=== PATIENT | male | born 1960 | race Caucasian/White ===

== ENCOUNTER 2024-04-06 17:47 | Emergency (ER) | payer BC, SELFPAY ==
[2024-04-06 17:50] VITALS: BP 127/71
[2024-04-06 17:51] VITALS: BP 127/71; BMI 27.0
[2024-04-06 18:00] VITALS: BP 123/66
[2024-04-06 18:04] LABS: % Basophils 1.4 % (0-2); % Eosinophils 4.7 % (0-6); % Immature Granulocytes 0.2 % (0-0.5); % Lymphocytes 19.1 % (20.5-51.1); % Monocytes 9.3 % (1.7-9.3); % Neutrophils 65.3 % (42.2-75.2); Absolute Basophils 0.1 10^3/uL (0-0.2); Absolute Eosinophils 0.4 10^3/uL (0-0.7); Absolute Lymphocytes 1.8 10^3/uL (1.2-3.4); Absolute Monocytes 0.9 10^3/uL (0.1-0.6); Absolute Neutrophils 6.1 10^3/uL (1.4-6.5); Hematocrit 40.8 % (39.0-52.0); Hemoglobin 14.3 g/dL (13.0-18.0); Mean Corpuscular Volume 82.8 fL (80.0-94.0); Mean Platelet Volume 9.9 fL (7.4-10.4); Nucleated Red Blood Cells % 0 % (-); Platelet Count 275 10^3/uL (130-400); Red Blood Cell Count 4.93 10^6/uL (4.70-6.10); Red Cell Dist. Width 14.1 % (11.5-14.5); White Blood Cell Count 9.4 10^3/uL (4.8-10.8)
[2024-04-06 18:19] LABS: ALT (SGPT) 23 U/L (0-50); AST (SGOT) 22 U/L (17-59); Albumin 4.3 g/dl (3.5-5.0); Alkaline Phosphatase 83 U/L (38-126); Blood Urea Nitrogen 13 mg/dl (9-20); Calcium 9.6 mg/dl (8.4-10.2); Carbon Dioxide 21 mmol/L (22-30); Chloride 110 mmol/L (98-107); Estimated Creatinine Clearance 76 ml/min; Glucose 228 mg/dl (70-99); Potassium 4.2 mmol/L (3.5-5.1); Sodium 139 mmol/L (135-145); Total Bilirubin 1.1 mg/dl (0.2-1.3); Total Protein 6.8 g/dl (6.3-8.2); eGFR > 60.00
[2024-04-06 18:28] LABS: Troponin I < 0.012 ng/ml
--- NOTE | 2024-04-06 19:08 | ED.GENMED ---
History of Present Illness
General
Chief Complaint: Chest Pain
Source: patient
Exam Limitations: none
Time Seen by Provider: 04/06/24 18:15
History of Present Illness
History of Present Illness:
This is a 63 year old male that comes in with c/o epigastric pain. State that he started with pain in the lower chest that went into his back States that he also had trouble breathing. States that this started at 4pm today and has been constant.
States that he had a headache after the nitro and was slightly lightheaded. States that he was nauseated and did vomit. Denies any fever, chills, diarrhea, urinary burning.
Past History
Past History
ED Past Medical History: Asthma, Hypercholesterolemia and NIDDM
ED Past Surgical History: None
Social History
Tobacco: Former smoker
Alcohol: None
Personal:
Living: with family
Review of Systems
Review of Systems
All Other Systems: ROS reviewed and negative except as documented in HPI and ROS
Constitutional: Reports no symptoms; Denies fever or chills
EENT: Reports no symptoms
Respiratory: Reports trouble breathing; Denies cough
Cardiac: Reports chest pain (Lower chest)
ABD/GI: Reports abdominal pain (Upper abd), nausea and vomiting; Denies diarrhea
: Reports no symptoms; Denies dysuria, frequency or urgency
Musculoskeletal: Reports no symptoms
Skin: Reports no symptoms
Neurological: Reports headache (after nitro) and other (Lightheaded); Denies dizzy
Psychiatric: Reports no symptoms
Phy Exam
General Physical Exam
General Presentation: no apparent distress
General age: appears stated age
General Skin: warm and dry
General Habitus: normal
General Mental: alert
General Hydration: dry mucous membranes
ENT Exam
ENT Exam: TM's normal, pharynx normal and neck supple
Eye Exam
Eye Exam: EOMI
Cardiovascular Exam
Cardiovascular Exam: regular rate/rhythm, no edema, no murmur and normal peripheral pulses
Pulmonary Exam
Pulmonary Exam: lungs clear, no respiratory distress, no rales, chest non tender, no crackles, no rhonchi, no wheezing and no cough
Gastrointestinal Exam
Gastrointestinal Exam: normal bowel sounds, soft, no organomegaly, no pulsatile mass, non distended and tender (epigastric and right upper abd tenderness)
Musculoskeletal Exam
Musculoskeletal Exam: full ROM and no edema
Skin Exam
Skin Exam: normal color, warm/dry, no rash and no petechia
Psychiatric Exam
Psychiatric Exam: normal mood/affect
Scores
Heart Score for Chest Pain Patients
STEMI patient?: Not applicable
Course
Orders/Labs/Results
Orders:
Orders
04/06/24 17:49
Electrocardiogram (*1) Urgent
Reason for Study: Chest Pain
EKG- Treatment ONCE
04/06/24 17:58
Complete Blood Count/With Diff Urgent
Comprehensive Metabolic Panel Urgent
Lipase Urgent
Comment: ADD ON
Troponin I Urgent
04/06/24 19:07
Pantoprazole [Protonix IV] 40 mg IV NOW STA
US Abdomen Complete/Upper Urgent
Comment:
Reason For Exam: epigastric and right upper abd tenderness
04/06/24 19:08
Add On- LAB Urgent
Tests Added?: Lipase
04/06/24 19:11
Ketorolac [Toradol] 30 mg IV NOW STA
04/06/24 20:57
Troponin I Urgent
Abnormal Lab Results
04/06/24
17:58
Absolute Monos (auto) 0.9 H 10^3/uL
(0.1-0.6)
Lymphocytes % 19.1 L %
(20.5-51.1)
Chloride 110 H mmol/L
(98-107)
Carbon Dioxide 21 L mmol/L
(22-30)
Glucose 228 H mg/dl
(70-99)
04/06/24 17:58
04/06/24 17:58
chloride slightly elevated. carbon dioxide slightly low. Hyperglycemia (patient is a diabetic), Troponin <0.012
Second Troponin <0.012, Lipase normal at 290
Vital Signs
Initial and Last Documented VS:
Initial Vital Signs
BP
127/71
04/06/24 17:50
Last Documented Vital Signs
Temp Pulse Resp BP Pulse Ox
98.3 F 70 14 120/68 100
04/06/24 17:51 04/06/24 20:57 04/06/24 20:57 04/06/24 20:57 04/06/24 20:57
MDM/Problems Addressed
Differential Diagnosis Includes:
Gallbladder disease, Gastritis,
MDM/Problems Addressed:
This is a 63 year old male that comes in with c/o pain in the upper abd/lower chest. States that the pain goes through to his back. States that it has been constant and that he was nauseated and vomiting.
Will get labs and US. Will give Protonix for Reflux
Back into see patient. Explained that his US shows that he has a gallstone stuck in the gallbladder neck. Explained that he will be admitted for further evaluation. Hospitalist notified.
Chronic conditions affecting care: DM
Acute Exacerbation and/or Progression of Chronic Illness:
NA
*Radiology
Radiology exam reviewed: radiology read reviewed (US night hawk- Nonmobile stone in the gallbladder neck. Gallbladder is distended, but without wall thickening or adjacent fluid. Negative sonographic Monteagle sign, but patient received pain
medication. Consider HIDA scan for further evaluation as warranted. No bile duct dilation. Liver is mildly) and other (US cont- liver is mildly echogenic, suggestive of steatosis. Limited evaluation of the pancreas. Unremarkable kidneys. Spleen is
normal in size. )
*Pulse Oximetry
Patient hypoxic: no
*EKG
Interpreted by ED Provider?: Yes
Heart Rate: 63
Rate: normal
Rhythm: sinus
[place]: normal axis
Interval: normal interval
QRS Pattern: normal QRS
Ischemia: no ischemia
*Preparator Interpretation
Rate: normal
Heart Rate: 66
Rhythm: sinus
*Critical Care Note
Total Time (30-74mins, 75-104mins- exclusive of procedures): Not Applicable
ED Attending Note
-
Portions of this chart may have been created with voice recognition software.� Occasional wrong word or��sound alike� substitutions may have occurred due to the inherent limitations of voice recognition software.
Discharge Plan
Departure
Patient Disposition: Against Medical Advice
Date of Disposition: 04/06/24
Time of Disposition: 21:38
Admit to: Med/Surg
Presentation/result/management discussed w/ accepting MD/DO: Hospitalist
Patient with high blood pressure during this ER visit?: No
Condition: Good
Covid-19: Not Applicable
Discharge Problem:
Cholelithiasis
Instructions: Gallstones (DC)
Prescriptions:
No Action
atorvastatin 40 mg Tablet
40 mg PO DAILY
aspirin 81 mg Tablet,Delayed Release (Dr/Ec)
81 mg PO DAILY
colesevelam 625 mg Tablet
625 mg PO BID
glimepiride 4 mg Tablet
4 mg PO BID
esomeprazole magnesium [Nexium] 20 mg Capsule,Delayed Release(Dr/Ec)
20 mg PO DAILY
ezetimibe 10 mg Tablet
10 mg PO DAILY
cholecalciferol (vitamin D3) [Vitamin D3] 50 mcg (2,000 unit) Capsule
50 mcg PO DAILY
Trulicity 1.5 mg/0.5 mL Pen Injector
1.5 mg SC QWEEK
Synjardy 12.5-1,000 mg Tablet
1 tab PO BID
Referrals:
Estephania Grace MD [Family Provider] -
Guicho Hernandez MD [Active] - Follow up in 2-3 days
Activity Restrictions/Additional Instructions:
As discussed, your Ultrasound shows that you have a gallstone that is stuck in the gallbladder neck. This can cause you to get very sick. You have chosen to sign out against medicatl advise. PLEASE RETURN TO THE EMERGENCY ROOM WITH INCREASED PAIN
OR FEVER.
Interventions
Interventions:
*Risk Screen - Suicide Last Done: 04/06/24 17:54
*General Assessment Last Done: 04/06/24 17:54
*Neglect/Abuse Screening Last Done: 04/06/24 17:54
ED- Fall Risk Assessment Last Done: 04/06/24 19:32
*ED COVID-19 Vaccine History Last Done: 04/06/24 17:54
ED- Cardiac Assessment Last Done: 04/06/24 19:32
Discharge Date and Time
Print Language: WOLOF
[2024-04-06 19:21] VITALS: BP 140/77
[2024-04-06] MEDS: TORADOL 30 MG IV (19:22)
--- NOTE | 2024-04-06 19:23 | EDRN ---
Pt was driving around 1600 when he developed pain in the center of his chest described as sharp radiating into his back. Pt took a pepcid which did not help. Pt got home and 911 called. Pt given aspirin and ntg by EMS and says it did not help his
chest pain. Pt felt sob, had nausea and vomited some phlegm once. Pt was sweaty when he first developed the pain. No fever/chills/cough, abd pain, weakness. Pt says he feels a little dizzy when he stands. No hx of similar chest pain.
[2024-04-06] MEDS: PROTONIX IV 40 MG IV (19:25)
[2024-04-06 19:53] LABS: Lipase 290 U/L (23-300)
[2024-04-06 20:57] VITALS: BP 120/68
[2024-04-06 21:26] LABS: Troponin I < 0.012 ng/ml
== END 2024-04-06 21:59 | disposition left against medical advice (07) ==
LOC: EMR 17:47
PROVIDERS: Clinical Nurse Specialist Family Health; Emergency Medicine; EMERGENCY PHYSICIAN Student in an Organized Health Care Education/Training Program; FAMILY PHYSICIAN Family Medicine
DX: K80.20 Calculus of gallbladder without cholecystitis without obstruction (principal); J45.909 Unspecified asthma, uncomplicated; E78.00 Pure hypercholesterolemia, unspecified; E11.65 Type 2 diabetes mellitus with hyperglycemia; Z87.891 Personal history of nicotine dependence; K21.9 Gastro-esophageal reflux disease without esophagitis; R11.2 Nausea with vomiting, unspecified
CPT/HCPCS: 99284; 96374; 96375; 76700; 80053; 83690; 84484; 85025; 93005

== ENCOUNTER 2024-04-07 11:41 | Day surgery (SDC) | payer BC, SELFPAY ==
[2024-04-07] VITALS (13 sets, daily range): BP systolic 102–160; BP diastolic 59–94; BMI 27.0
[2024-04-07] MEDS: NSS 1000 IV (04:54)
[2024-04-07] MEDS: DILAUDID 0.5 MG IV (04:55)
--- NOTE | 2024-04-07 04:58 | ED.GENMED ---
History of Present Illness
General
Chief Complaint: Abdominal Pain
Source: patient, spouse and previous hospital records (ED visit from yesterday evening with similar complaint)
Exam Limitations: none
Time Seen by Provider: 04/07/24 04:02
Nursing documentation reviewed up to this point in time: agreed with
History of Present Illness
History of Present Illness:
This is a 63-year-old gentleman who has history of hyperlipidemia, wyf-mophwkc-ldadhuycj diabetes who presented to this ED initially yesterday evening with complaints of epigastric, right upper quadrant pain, moderate to severe accompanied with
nausea and vomiting. He does admit to similar less intense episodes of pain sporadically over the past several months but much more severe and persistent yesterday evening.
Laboratory studies were unremarkable but ultrasound showed multiple gallstones with a large stone lodged in the neck of the gallbladder. No convincing evidence of cholecystitis.
He was pain-free after an IV dose of Toradol and pantoprazole. Was offered hospitalization but declined and was discharged to home.
He returns this morning due to return of right upper quadrant pain around midnight last night. Upon returning home he did not eat or drink anything, has not taken any additional pain medication. He admits to nausea but has had no further vomiting.
No fevers or chills.
Past History
Past History
ED Past Medical History: Asthma, Hypercholesterolemia, NIDDM and Other (Cholelithiasis)
ED Past Surgical History: None
Social History
Tobacco: Former smoker
Alcohol: None
Personal:
Living: with family
Employment: Employed
Family History
Family History: Other (Noncontributory)
Phy Exam
Physical Exam
Physical Exam:
GENERAL: 63-year-old gentleman appears his stated age, awake and alert, pleasant, appears in no acute distress. is accompanying.
EYE: anicteric
NECK: Supple, nontender, no meningismus, no significant adenopathy.
ENT: posterior pharynx is clear, oral mucosa is moist. TM clear b/l, nares patent.
CARDIAC: Regular rate and rhythm. no murmur.
LUNGS: Clear breath sounds bilaterally, no acute respiratory distress, no wheezes/rales/rhonchi
ABDOMEN: Soft, nondistended, moderate tenderness right upper quadrant as well as mild tenderness epigastric region, no r/g, no cvat. normoactive BS.
NEUROLOGICAL: Alert and oriented x3, no focal neuro deficits. Gait is steady.
SKIN: Warm and dry, normal color, skin intact. No rash.
MUSCULOSKELETAL: No C/C/E. peripheral pulses are full and equal b/l. No palpable tenderness.
PSYCH: Normal and appropriate interaction.
Course
Orders/Labs/Results
Orders:
Orders
04/07/24 04:23
0.9% Sodium Chloride 1000 ml [Nss] 1,000 ml IV BOLUS
HYDROmorphone [Dilaudid] 0.5 mg IV NOW STA
04/07/24 04:53
Complete Blood Count/With Diff Urgent
Comprehensive Metabolic Panel Urgent
Lipase Urgent
04/07/24 05:57
Piperacillin/Tazo 4.5 Gram [Zosyn] 4.5 gram in 100 ml IV NOW
Abnormal Lab Results
04/07/24
04:53
WBC 13.5 H 10^3/uL
(4.8-10.8)
Abs Immat Gran (auto) 0.1 H 10^3/uL
(0-0.05)
Absolute Neuts (auto) 11.2 H 10^3/uL
(1.4-6.5)
Absolute Lymphs (auto) 1.1 L 10^3/uL
(1.2-3.4)
Absolute Monos (auto) 0.9 H 10^3/uL
(0.1-0.6)
Neutrophils % 83.0 H %
(42.2-75.2)
Lymphocytes % 8.3 L %
(20.5-51.1)
Chloride 112 H mmol/L
(98-107)
Carbon Dioxide 20 L mmol/L
(22-30)
Glucose 144 H mg/dl
(70-99)
Total Bilirubin 1.6 H mg/dl
(0.2-1.3)
04/07/24 04:53
04/07/24 04:53
Vital Signs
Initial and Last Documented VS:
Initial Vital Signs
Temp Pulse Resp BP Pulse Ox
97.7 F 72 22 160/85 100
04/07/24 03:14 04/07/24 03:14 04/07/24 03:14 04/07/24 03:14 04/07/24 03:14
Last Documented Vital Signs
Temp Pulse Resp BP Pulse Ox
97.7 F 69 16 141/66 96
04/07/24 03:14 04/07/24 06:20 04/07/24 06:20 04/07/24 06:20 04/07/24 06:20
MDM/Problems Addressed
Differential Diagnosis Includes:
Patient with known cholelithiasis with stone lodged in the neck of the gallbladder is noted on ultrasound yesterday returns to the ED with return of right upper quadrant abdominal pain despite remaining n.p.o.
Concern for early/progressive cholecystitis.
Will recheck labs, medicate for pain and nausea.
Depending on results and clinical course will plan to touch base with general surgery.
Chronic conditions affecting care: Other (Known cholelithiasis)
*Radiology
Radiology exam reviewed: radiology read reviewed (Ultrasound of the abdomen from yesterday evening reviewed.)
*Pulse Oximetry
Patient hypoxic: no
*Critical Care Note
Total Time (30-74mins, 75-104mins- exclusive of procedures): Not Applicable
Update Note
Update Note:
04/07/2024 0606 AM
Patient is much more comfortable after an IV dose of Dilaudid.
White blood cell count trending up to 13.5. T. bili trending up to 1.6.
All other LFTs within normal limits.
Concern for acute cholecystitis. Will initiate IV Zosyn, continue IV fluids.
Will contact general surgery. Awaiting return text.
04/07/2024 0629 AM
Return text from Dr. Gatica who request patient be admitted to hospitalist service. He will evaluate this a.m.
ED Attending Note
-
Portions of this chart may have been created with voice recognition software.� Occasional wrong word or��sound alike� substitutions may have occurred due to the inherent limitations of voice recognition software.
Discharge Plan
Departure
Patient Disposition: Admit
Date of Disposition: 04/07/24
Time of Disposition: 06:29
Admit to: Med/Surg
Presentation/result/management discussed w/ accepting MD/DO: Hospitalist
Condition: Fair
Discharge Problem:
Acute calculous cholecystitis
Prescriptions:
No Action
atorvastatin 40 mg Tablet
40 mg PO DAILY
aspirin 81 mg Tablet,Delayed Release (Dr/Ec)
81 mg PO DAILY
colesevelam 625 mg Tablet
625 mg PO BID
glimepiride 4 mg Tablet
4 mg PO BID
esomeprazole magnesium [Nexium] 20 mg Capsule,Delayed Release(Dr/Ec)
20 mg PO DAILY
ezetimibe 10 mg Tablet
10 mg PO DAILY
cholecalciferol (vitamin D3) [Vitamin D3] 50 mcg (2,000 unit) Capsule
50 mcg PO DAILY
Trulicity 1.5 mg/0.5 mL Pen Injector
1.5 mg SC QWEEK
Synjardy 12.5-1,000 mg Tablet
1 tab PO BID
Referrals:
NONE,* [Active] -
Interventions
Interventions:
*Risk Screen - Suicide Last Done: 04/07/24 03:14
*General Assessment Last Done: 04/07/24 03:14
*Neglect/Abuse Screening Last Done: 04/07/24 03:14
ED- Fall Risk Assessment Last Done: 04/07/24 03:18
ZL-Mdffwo-Jovwdnoqfi Assessment Last Done: 04/07/24 06:17
Discharge Date and Time
Print Language: CYPRIOT
[2024-04-07 05:21] LABS: % Basophils 0.8 % (0-2); % Eosinophils 0.7 % (0-6); % Immature Granulocytes 0.4 % (0-0.5); % Lymphocytes 8.3 % (20.5-51.1); % Monocytes 6.8 % (1.7-9.3); Absolute Basophils 0.1 10^3/uL (0-0.2); Absolute Eosinophils 0.1 10^3/uL (0-0.7); Absolute Immature Granulocytes 0.1 10^3/uL (0-0.05); Absolute Lymphocytes 1.1 10^3/uL (1.2-3.4); Absolute Monocytes 0.9 10^3/uL (0.1-0.6); Absolute Neutrophils 11.2 10^3/uL (1.4-6.5); Hematocrit 41.8 % (39.0-52.0); Hemoglobin 14.5 g/dL (13.0-18.0); Mean Corp Hgb Conc. 34.7 g/dL (33.0-37.0); Mean Corpuscular Hgb 28.8 pg (27.0-31.0); Mean Corpuscular Volume 83.1 fL (80.0-94.0); Nucleated Red Blood Cells % 0 % (-); Platelet Count 252 10^3/uL (130-400); Red Blood Cell Count 5.03 10^6/uL (4.70-6.10); Red Cell Dist. Width 14.3 % (11.5-14.5); White Blood Cell Count 13.5 10^3/uL (4.8-10.8)
[2024-04-07 05:43] LABS: ALT (SGPT) 24 U/L (0-50); AST (SGOT) 27 U/L (17-59); Albumin 4.5 g/dl (3.5-5.0); Alkaline Phosphatase 88 U/L (38-126); Blood Urea Nitrogen 13 mg/dl (9-20); Calcium 9.6 mg/dl (8.4-10.2); Carbon Dioxide 20 mmol/L (22-30); Chloride 112 mmol/L (98-107); Glucose 144 mg/dl (70-99); Lipase 246 U/L (23-300); Sodium 141 mmol/L (135-145); Total Bilirubin 1.6 mg/dl (0.2-1.3); Total Protein 7.1 g/dl (6.3-8.2); eGFR > 60.00
[2024-04-07] MEDS: ZOSYN 100 IV (06:17)
--- NOTE | 2024-04-07 06:21 | EDRN ---
Patient is sleeping at this time, at bedside will continue to monitor
--- NOTE | 2024-04-07 09:34 | CON.GS ---
Medical History
-
Chief Complaint: Epigastric and RUQ abdominal pain
History of Present Illness:
Patient is a 63 yo M with a PMH of GERD, HLD, asthma, and NIDDM who presents with persistent epigastric and RUQ abdominal pain. Mr. Hooks was recently evaluated in the ER on the evening of 04/06. He was diagnosed with symptomatic
cholelithiasis. His symptoms improved he personally made the decision to try outpatient management. However, he has had persistent but somewhat improved epigastric and RUQ abdominal discomfort. No nausea or vomiting. No fevers or chills. No
significant fluctuation in GI habits. He denies any jaundice, pale stools, or tea colored urine. He has had intermittent attacks for years now. He states that these attacks would occur every few months. Over the last 2 months he has had more
persistent attacks. is postcholecystectomy.
Past Medical History
Past Medical History: Asthma, GERD, Hypercholesterolemia and NIDDM
Past Surgical History: None
Social History
Tobacco: Former Smoker
Alcohol: Occasional
Drug: None
Personal:
Living: With Family
Employment: Employed
Family History
Family History: Reviewed & Noncontributory
Allergies / Home Medications
Allergy/AdvReac Type Severity Reaction Status Date / Time
No Known Allergies Allergy Verified 04/07/24 03:18
�Medication �Instructions �Recorded �Confirmed �Type
aspirin 81 mg tablet,delayed 81 mg PO DAILY 04/06/24 04/07/24 History
release
atorvastatin 40 mg tablet 40 mg PO DAILY 04/06/24 04/07/24 History
cholecalciferol (vitamin D3) 50 50 mcg PO DAILY 04/06/24 04/07/24 History
mcg (2,000 unit) capsule (Vitamin
D3)
colesevelam 625 mg tablet 625 mg PO BID 04/06/24 04/07/24 History
dulaglutide 1.5 mg/0.5 mL 1.5 mg SC QWEEK 04/06/24 04/07/24 History
subcutaneous pen injector
(Trulicity)
empagliflozin 12.5 mg-metformin 1 tab PO BID 04/06/24 04/07/24 History
1,000 mg tablet (Synjardy)
esomeprazole magnesium 20 mg 20 mg PO DAILY 04/06/24 04/07/24 History
capsule,delayed release (Nexium)
ezetimibe 10 mg tablet 10 mg PO DAILY 04/06/24 04/07/24 History
glimepiride 4 mg tablet 4 mg PO BID 04/06/24 04/07/24 History
Review of Systems
-
A 10 point review of systems was completed, and was negative except as per HPI.
Physical Exam
Vital Signs
Temp Pulse Resp BP Pulse Ox
97.7 F 68 20 139/85 97
04/07/24 03:14 04/07/24 09:00 04/07/24 09:00 04/07/24 09:00 04/07/24 09:00
04/06/24 04/07/24 04/08/24
06:59 06:59 06:59
Actual Weight 83 kg
Body Mass Index (BMI) 27.0
Lab Results
04/07/24 04:53
04/07/24 04:53
WBC 13.5 10^3/uL (4.8-10.8) H 04/07/24 04:53
Hgb 14.5 g/dL (13.0-18.0) 04/07/24 04:53
Hct 41.8 % (39.0-52.0) 04/07/24 04:53
Plt Count 252 10^3/uL (130-400) 04/07/24 04:53
Abs Immat Gran (auto) 0.1 10^3/uL (0-0.05) H 04/07/24 04:53
Neutrophils % 83.0 % (42.2-75.2) H 04/07/24 04:53
Physical Exam
General: Well Developed, Well Nourished and No Apparent Distress
HEENT: Normocephalic and Anicteric
Respiratory: Non Labored Respirations
Cardiac: Regular Rhythm
GI: Soft, Non Distended, Tender (RUQ) and Other (Non-peritoneal)
Musculoskeletal: No Edema
Skin: Warm and Dry
Neuro: Nonfocal/Grossly Intact
Data Reviewed
-
Ultrasound: Image Personally Visualized and interpreted and Report Reviewed by me
Labs: Labs Reviewed by me
Old Records: Reviewed
Assessment / Plan
-
Patient is a 63 yo M p/w acute cholecystitis
The natural history and pathophysiology of biliary and stone disease was discussed. Anatomy was reviewed. Workup thus far including ultrasound and labs were reviewed. Options for management including medical management with antibiotics and a
low-fat diet versus surgical management with cholecystectomy were considered and discussed. Given his persistent symptoms recommend cholecystectomy.
Plan for laparoscopic cholecystectomy with possible cholangiogram. The procedure itself, as well as the risks, benefits, and alternatives was discussed. Specifically, we discussed the risks of bleeding, infection, injury to surrounding structures
(bowel, bile ducts), CBD injury, need for open procedure. Typical postprocedural recovery including pain management and a 10 to 20% risk of fluctuations in GI function was discussed. All questions answered. Consent signed.
-- Laparoscopic cholecystectomy
-- NPO, IVF
-- Zosyn admin in ED
-- Pain control: Tylenol and IV Dilaudid PRN
--- NOTE | 2024-04-07 09:39 | W.SUR.PREOP ---
Pre-Operative Surgical Note
-
I have examined this patient prior to the performance of the scheduled procedure.
The patient's condition is unchanged from the time of the current History and
Physical and the patient is able to undergo the scheduled procedure.
--- NOTE | 2024-04-07 11:26 | W.IMMPOSTOP ---
Addendum entered and electronically signed by Everardo Paredes MD 04/07/24 11:40:
[facility]# [id number]
Original Note:
Surgical Immed Post Op Note
-
Primary Surgeon: Reggie
Assisting Surgeon: None
Pre-op Diagnosis: Acute cholecystitis
Post-op Diagnosis: Acute cholecystitis
Procedure Performed: Laparoscopic cholecystectomy with IOC
Anesthesia Type: General
Specimen / Cultures:
1. Gallbladder
Estimated Blood Loss: 3 cc
Complications: None
Operative Findings:
1. Acutely inflamed and edematous GB, hydropic with white bile
2. Critical view of safety
3. IOC with filling defect flushed through, no further defects appreciated
4. Duct taken with stapler due to thickness, artery with clips
Plan:
-- Abx while in hospital, none on DC
-- Repeat CMP in AM
[2024-04-07 11:38] LABS: Glucose - Point of Care 256 mg/dl (70-99)
[2024-04-07] MEDS: NORMOSOL-R 1000 IV ×2 (11:46→20:13)
[2024-04-07] MEDS: NOVOLOG vial 4 UNITS SC (11:48)
[2024-04-07] MEDS: TYLENOL PO (12:00)
--- NOTE | 2024-04-07 12:25 | W.PN.HOSP.TC ---
Today's Communication/Plan
-
will follow for diabetic management
Assessment / Plan
Assessment / Plan
Acute Cholecystitis
NIDDM
GERD
Hyperlipidemia
Rec: would hold on resuming Amaryl until oral intake and levels of glu are known and continue as ordered insulin moderate sliding scale
will follow during hospitalization for diabetic management
Thank you
see dictated note
Anticipated Discharge: 24 - 48 hours
Subjective/Interval History
-
Date of Service: April 07, 2024
Pt admitted to surgical service with abdominal pain, medicine consulted for diabetic management
Objective Data
-
Labs:
Laboratory Results
04/07/24
04:53
WBC 13.5 H
Hgb 14.5
Hct 41.8
Plt Count 252
Sodium 141
Potassium 4.0
Chloride 112 H
Carbon Dioxide 20 L
BUN 13
Creatinine 0.9
Glucose 144 H
Calcium 9.6
Total Bilirubin 1.6 H
AST 27
ALT 24
Alkaline Phosphatase 88
Vital Signs:
Vital Signs
Temp Pulse Resp BP Pulse Ox
97.4 F 99 14 134/94 92
04/07/24 11:30 04/07/24 12:15 04/07/24 12:15 04/07/24 12:15 04/07/24 12:15
Review of Systems
-
History Source: Patient and Family ( at bedside)
Constitutional: Denies Fever
Respiratory: Reports No Symptoms
Cardiac: Reports No Symptoms
Abdomen/GI: Reports Abdominal Pain, Nausea and Vomiting
Physical Exam
-
General: Well Developed, Well Nourished and No Apparent Distress
HEENT: Normocephalic, Atraumatic and Moist Mucous Membranes
Respiratory: Clear to Auscultation; Negative Wheezes, Rales or Rhonchi
Cardiac: Regular Rhythm and S1/S2
GI: Soft, Normal Bowel Sounds and Tender (Herman's point)
Musculoskeletal: No Clubbing, No Cyanosis and No Edema
Neuro: Awake, Alert and Oriented
--- NOTE | 2024-04-07 13:00 | PTCARENOTE ---
Pt received from the PACU via bed. Transport was w/o incident. Pt is Drowsy, and easily arousable. HR reg/irreg, lungs are clear, resp. easy. Pulse ox 97%on 3Lvia nc. Pt's abd with Lap. sites w/ surgical glue, well approximated, no drainage noted.
VSS, Pt is afebrile. Pt and Pt's instructed on plan of care. Both Pt and verbalized understanding of instructions, call ríos is within reach.
[2024-04-07 16:49] LABS: Glucose - Point of Care 97 mg/dl (70-99)
[2024-04-07] MEDS: ZOSYN 50 IV ×2 (17:44→22:04)
[2024-04-07] MEDS: TYLENOL 650 MG PO ×3 (17:45→23:52)
[2024-04-07] MEDS: TORADOL 10 MG IV (18:12)
[2024-04-07 22:01] LABS: Glucose - Point of Care 125 mg/dl (70-99)
[2024-04-08] MEDS: ZOSYN 50 IV (04:04)
[2024-04-08] MEDS: TYLENOL 650 MG PO ×5 (04:04→19:44)
[2024-04-08 07:05] VITALS: BP 140/72
[2024-04-08] MEDS: NORMOSOL-R IV (07:12)
[2024-04-08 07:23] LABS: Hematocrit 38.5 % (39.0-52.0); Hemoglobin 13.1 g/dL (13.0-18.0); Mean Corpuscular Hgb 28.8 pg (27.0-31.0); Mean Corpuscular Volume 84.6 fL (80.0-94.0); Platelet Count 223 10^3/uL (130-400); Red Blood Cell Count 4.55 10^6/uL (4.70-6.10); Red Cell Dist. Width 14.6 % (11.5-14.5); White Blood Cell Count 10.2 10^3/uL (4.8-10.8)
[2024-04-08 07:27] LABS: Glucose - Point of Care 137 mg/dl (70-99)
[2024-04-08] MEDS: PROTONIX 40 MG PO (07:27)
[2024-04-08] MEDS: ZETIA 10 MG PO (07:27)
[2024-04-08] MEDS: LIPITOR 40 MG PO (07:27)
--- NOTE | 2024-04-08 07:28 | W.PN.GS2 ---
Today's Communication / Plan
-
-- F/u AM labs
-- HLIV
-- Medicine on board for DM control
-- DC today pending Hospitalist clearance and labs
Assessment / Plan
-
Patient is a 63 yo M POD#1 s/p laparoscopic cholecystectomy with IOC
Recovering well. No postoperative concerns.
-- Low fat diet
-- F/u AM labs
-- Pain control: Tylenol, Toradol, Oxycodone
-- HLIV
-- Medicine on board for DM control
-- OOB/ambulate
-- DVT: Lovenox
-- DC today pending Hospitalist clearance and labs
Subjective Data
-
Date of Service: April 08, 2024
No complaints. Pain well-controlled. Tolerating a low-fat diet, no nausea or vomiting. Ambulating. Voiding. Afebrile.
Objective Data
-
Intake and Output
04/07/24 04/08/24 04/09/24
06:59 06:59 06:59
Intake Total 3870 / 3870
Output Total 1500 / 1500
Balance 2370 / 2370
Intake:
Oral fluids 720 / 720
IV fluids (Total) 2950 / 2950
normosol 100 / 100
IV piggybacks 200 / 200
Output:
Urine, Voided 1500 / 1500
Vital Signs
Temp Pulse Resp BP Pulse Ox
98.4 F 72 20 102/61 98
04/07/24 23:00 04/07/24 23:00 04/07/24 23:00 04/07/24 23:00 04/07/24 23:00
Lab Results
04/08/24 06:48
Calcium 9.6 mg/dl (8.4-10.2) 04/07/24 04:53
Total Bilirubin 1.6 mg/dl (0.2-1.3) H 04/07/24 04:53
AST 27 U/L (17-59) 04/07/24 04:53
ALT 24 U/L (0-50) 04/07/24 04:53
Alkaline Phosphatase 88 U/L (38-126) 04/07/24 04:53
Total Protein 7.1 g/dl (6.3-8.2) 04/07/24 04:53
Albumin 4.5 g/dl (3.5-5.0) 04/07/24 04:53
Physical Exam
-
Gen: NAD
Abd: soft NT/ND, non-peritoneal, incisions c/d/i - no erythema, ecchymosis or drainage
--- NOTE | 2024-04-08 07:49 | W.PN.HOSP.TC ---
Today's Communication/Plan
-
Elevated bilirubin, AST and ALT
Discussed with surgery -- monitor patient and recheck labs in the morning
Restarted patient's oral DM medications -- appreciate Diabetes Nurse Practitioner
Assessment / Plan
Assessment / Plan
Physical Exam
General: Not in acute distress
HEENT: Moist Mucous Membranes
Respiratory: Clear to Auscultation Bilaterally
Cardiac: Regular Rhythm and S1/S2
GI: Soft, Normal Bowel Sounds and Tender (Herman's point)
Musculoskeletal: No Cyanosis and No Edema
Neuro: Awake, Alert and Oriented

Assessment/Plan
Acute Cholecystitis s/p laparoscopic cholecystectomy with IOC
- Continue low fat diet
- F/u AM labs
- Pain control: Tylenol, Toradol, Oxycodone
- Hep Lock IV -- maintain IV access
- OOB/ambulate
Increasing Bilirubin, AST and ALT
-Noted on April 08, 2024
-Possibly from a passed stone (discussed with surgery)
-Repeat CMP on April 08, 2024 with high levels of the above, discussed with surgeon and will keep patient to recheck morning labs
NIDDM
-Patient is eating well now
-Continue Metformin
-Resume Empagliflozin
-Continue Glimepiride
-Appreciate Diabetes INTENSIVIST evaluation and recommendations
GERD
-Continue Nexium
Hyperlipidemia
-Continue Zetia and Colesevelam
DVT Prophylaxis: Lovenox
Anticipated Discharge: 24 - 48 hours
Subjective/Interval History
-
Date of Service: April 08, 2024
Patient was seen and examined. He was tolerating his diet and denied any significant symptoms or complaints.
Objective Data
-
Labs:
Laboratory Results
04/08/24
06:48
WBC 10.2
Hgb 13.1
Hct 38.5 L
Plt Count 223
Sodium Pending
Potassium Pending
Chloride Pending
Carbon Dioxide Pending
BUN Pending
Creatinine Pending
Glucose Pending
Calcium Pending
Total Bilirubin Pending
AST Pending
ALT Pending
Alkaline Phosphatase Pending
Vital Signs:
Vital Signs
Temp Pulse Resp BP Pulse Ox
98.1 F 87 18 140/72 96
04/08/24 07:05 04/08/24 07:05 04/08/24 07:05 04/08/24 07:05 04/08/24 07:05
I&O
04/07/24 04/08/24 04/09/24
06:59 06:59 06:59
Intake Total 3870 / 3870
Output Total 1500 / 1500
Balance 2370 / 2370
[2024-04-08 07:58] LABS: ALT (SGPT) 122 U/L (0-50); AST (SGOT) 90 U/L (17-59); Albumin 3.5 g/dl (3.5-5.0); Alkaline Phosphatase 82 U/L (38-126); Blood Urea Nitrogen 15 mg/dl (9-20); Calcium 8.5 mg/dl (8.4-10.2); Carbon Dioxide 22 mmol/L (22-30); Chloride 108 mmol/L (98-107); Estimated Creatinine Clearance 84 ml/min; Glucose 122 mg/dl (70-99); Potassium 4.3 mmol/L (3.5-5.1); Sodium 137 mmol/L (135-145); Total Bilirubin 2.4 mg/dl (0.2-1.3); Total Protein 5.8 g/dl (6.3-8.2); eGFR > 60.00
[2024-04-08 08:04] LABS: Glycohemoglobin (HgbA1c) 6.6 % (4.0-5.6)
--- NOTE | 2024-04-08 11:33 | PN.DE.MGMTRT ---
Insulin Management
- -
04/08/2024: Diabetes Management Consult
63 year old male who presented with persistent epigastric and RUQ abdominal pain due to acute Cholecystitis.
PMH: GERD, HLD, asthma, and NIDDM, was taking glimepiride 4 mg BID, Trulicity 1.5 mg SQ weekly and Synjardy 12.5-1,000 mg Tablet PO BID prior to admission. Pt is now POD#1 s/p laparoscopic cholecystectomy. A1C 6.6%, Cr 0.9, eGFR >60
Pt awake, A/O x3, sitting up in chair, - Rebecca at bedside. Able to discuss diabetes mgt. States he has a working meter and monitor often at home.
Glucose has been stable and in range, premeal 97 to 135, fasting 122 this AM.
His OP diabetes meds were placed on hold upon admission, pt has been started on a low fat diet.
Will restart his OP regimen: Jardiance 10mg daily, Metformin 1000mg BID and Glimepiride 4mg BID.
Pt is stable for discharge home from diabetes stand point. No supplies needed at this time
Diabetes History
- -
Type of Diabetes: 2
Pre-Admission Diabetes Regimen
04/08/24
06:48
Creatinine 0.9
Lab Results
Hemoglobin A1c 6.6 % (4.0-5.6) H 04/08/24 06:48
Insulin Pump Settings
IP Diabetes Regimen
04/07/24 04/07/24 04/07/24
11:36 16:49 21:59
Glucose
POC Glucose 256 H 97 125 H
04/08/24 04/08/24
06:48 07:26
Glucose 122 H
POC Glucose 137 H
Meal type: Lunch
Amount consumed: 0
Patient Education
[2024-04-08 11:35] VITALS: BP 117/64
[2024-04-08 11:41] LABS: Glucose - Point of Care 113 mg/dl (70-99)
[2024-04-08] MEDS: JARDIANCE 10 MG PO (11:54)
[2024-04-08] MEDS: GLUCOPHAGE 1000 MG PO ×2 (11:54→17:05)
--- NOTE | 2024-04-08 14:24 | CM ---
Initial assessment completed with patient and who live in a 1 story home plus basement with 1 step to enter. 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 Patient does not use any. No history of
psychiatric hospitalizations. Pharmacy is [facility] in [place] and PCP is [facility]. Anticipate no needs at discharge.
[2024-04-08 15:05] VITALS: BP 122/68
[2024-04-08 15:06] LABS: INR 1.29; PT 15.9 Sec (11.4-14.6)
[2024-04-08 15:08] LABS: ALT (SGPT) 117 U/L (0-50); AST (SGOT) 87 U/L (17-59); Alkaline Phosphatase 86 U/L (38-126); Blood Urea Nitrogen 15 mg/dl (9-20); Calcium 8.9 mg/dl (8.4-10.2); Carbon Dioxide 24 mmol/L (22-30); Chloride 106 mmol/L (98-107); Estimated Creatinine Clearance 95 ml/min; Glucose 154 mg/dl (70-99); Potassium 4.7 mmol/L (3.5-5.1); Sodium 136 mmol/L (135-145); Total Bilirubin 2.4 mg/dl (0.2-1.3); Total Protein 6.6 g/dl (6.3-8.2); eGFR > 60.00
[2024-04-08 17:02] LABS: Glucose - Point of Care 122 mg/dl (70-99)
[2024-04-08] MEDS: LOVENOX 40 MG SC (17:07)
[2024-04-08 21:31] LABS: Glucose - Point of Care 158 mg/dl (70-99)
[2024-04-08 23:01] VITALS: BP 126/76
[2024-04-09] MEDS: TYLENOL PO (00:54)
[2024-04-09] MEDS: TYLENOL 650 MG PO ×3 (04:24→12:37)
[2024-04-09 06:21] LABS: % Basophils 1.4 % (0-2); % Eosinophils 4.7 % (0-6); % Immature Granulocytes 0.3 % (0-0.5); % Lymphocytes 22.1 % (20.5-51.1); % Monocytes 11.1 % (1.7-9.3); % Neutrophils 60.4 % (42.2-75.2); Absolute Basophils 0.1 10^3/uL (0-0.2); Absolute Eosinophils 0.4 10^3/uL (0-0.7); Absolute Lymphocytes 1.8 10^3/uL (1.2-3.4); Absolute Monocytes 0.9 10^3/uL (0.1-0.6); Absolute Neutrophils 4.8 10^3/uL (1.4-6.5); Hematocrit 42.3 % (39.0-52.0); Hemoglobin 13.7 g/dL (13.0-18.0); Mean Corp Hgb Conc. 32.4 g/dL (33.0-37.0); Mean Corpuscular Hgb 28.1 pg (27.0-31.0); Mean Corpuscular Volume 86.9 fL (80.0-94.0); Mean Platelet Volume 10.7 fL (7.4-10.4); Nucleated Red Blood Cells % 0 % (-); Platelet Count 238 10^3/uL (130-400); Red Blood Cell Count 4.87 10^6/uL (4.70-6.10); White Blood Cell Count 7.9 10^3/uL (4.8-10.8)
[2024-04-09 06:53] LABS: ALT (SGPT) 106 U/L (0-50); AST (SGOT) 63 U/L (17-59); Albumin 3.7 g/dl (3.5-5.0); Alkaline Phosphatase 108 U/L (38-126); Blood Urea Nitrogen 17 mg/dl (9-20); Carbon Dioxide 22 mmol/L (22-30); Chloride 106 mmol/L (98-107); Estimated Creatinine Clearance 95 ml/min; Glucose 115 mg/dl (70-99); Potassium 4.5 mmol/L (3.5-5.1); Sodium 138 mmol/L (135-145); Total Bilirubin 1.6 mg/dl (0.2-1.3); Total Protein 6.2 g/dl (6.3-8.2); eGFR > 60.00
[2024-04-09 07:11] VITALS: BP 132/69
--- NOTE | 2024-04-09 07:11 | PN.DE.MGMTRT ---
Insulin Management
- -
04/09/2024: Diabetes Management Consult Follow up
Patient admitted with persistent epigastric and RUQ abdominal pain due to acute Cholecystitis.
PMH: GERD, HLD, asthma, and NIDDM, was taking glimepiride 4 mg BID, Trulicity 1.5 mg SQ weekly and Synjardy 12.5-1,000 mg Tablet PO BID prior to admission. POD#2 s/p laparoscopic cholecystectomy. A1C 6.6%, Cr 0.9, eGFR >60
Pt awake, A/O x3, sitting up in chair. Able to discuss diabetes mgt. States he has a working meter and monitors often at home.
Glucose has been stable and in range, premeal 113 to 158, fasting 115 this AM.
His OP diabetes meds were placed on hold upon admission, pt has been started on a low fat diet.
Jardiance 10mg daily, Metformin 1000mg BID and Glimepiride 4mg BID were started 04/08
Fasting glucose today 115. Will make no change to regimen.
For possible discharge, to continue home regimen.
Diabetes History
- -
Type of Diabetes: 2
Pre-Admission Diabetes Regimen
04/08/24 04/08/24 04/09/24
06:48 14:33 04:54
Creatinine 0.9 0.8 0.8
Lab Results
Hemoglobin A1c 6.6 % (4.0-5.6) H 04/08/24 06:48
Insulin Pump Settings
IP Diabetes Regimen
04/08/24 04/08/24 04/08/24
06:48 07:26 11:40
Glucose 122 H
POC Glucose 137 H 113 H
04/08/24 04/08/24 04/08/24
14:33 17:00 21:30
Glucose 154 H
POC Glucose 122 H 158 H
04/09/24
04:54
Glucose 115 H
POC Glucose
Meal type: Lunch
Meal type: Breakfast
Amount consumed: 100%
Amount consumed: 100%
Patient Education
--- NOTE | 2024-04-09 08:07 | W.PN.HOSP.TC ---
Today's Communication/Plan
-
Okay to discharge today
Assessment / Plan
Assessment / Plan
Physical Exam
General: Not in acute distress
HEENT: Moist Mucous Membranes
Respiratory: Clear to Auscultation Bilaterally
Cardiac: Regular Rhythm and S1/S2
GI: Soft, Normal Bowel Sounds and Minimal tenderness at incisions
Musculoskeletal: No Cyanosis and No Edema
Neuro: Awake, Alert and Oriented

Assessment/Plan
Acute Cholecystitis s/p laparoscopic cholecystectomy with IOC
- Continue low fat diet
- F/u AM labs
- Pain control: Tylenol, Toradol, Oxycodone
- Hep Lock IV -- maintain IV access
- OOB/ambulate
Elevated Bilirubin, AST and ALT likely from intra op cholangiogram with small stone that flushed out, no other filling defects
-Improving
-Possibly from a passed stone (discussed with surgery)
-No need for further inpatient work-up as per on-call piano stringer
NIDDM
-Patient is eating well now
-Continue Metformin
-Resume Empagliflozin
-Continue Glimepiride
-Appreciate Diabetes BANKING SERVICES OFFICER evaluation and recommendations
GERD
-Continue Nexium
Hyperlipidemia
-Continue Zetia and Colesevelam
DVT Prophylaxis: Lovenox
Anticipated Discharge: Today
Subjective/Interval History
-
Date of Service: April 09, 2024
Patient was seen and examined. He denied any new significant symptoms or complaints.
Objective Data
-
Labs:
Laboratory Results
04/09/24
04:54
WBC 7.9
Hgb 13.7
Hct 42.3
Plt Count 238
Sodium 138
Potassium 4.5
Chloride 106
Carbon Dioxide 22
BUN 17
Creatinine 0.8
Glucose 115 H
Calcium 9.0
Total Bilirubin 1.6 H
AST 63 H
ALT 106 H
Alkaline Phosphatase 108
Vital Signs:
Vital Signs
Temp Pulse Resp BP Pulse Ox
98 F 72 17 132/69 96
04/09/24 07:11 04/09/24 07:11 04/09/24 07:11 04/09/24 07:11 04/09/24 07:11
I&O
04/08/24 04/09/24 04/10/24
06:59 06:59 06:59
Intake Total 3870 / 3870 680 / 680
Output Total 1500 / 1500 500 / 500
Balance 2370 / 2370 180 / 180
--- NOTE | 2024-04-09 08:29 | W.PN.GS2 ---
Today's Communication / Plan
-
-- DC today, repeat labs as outpatient
Assessment / Plan
-
Patient is a 63 yo M POD#2 s/p laparoscopic cholecystectomy with IOC
Recovering well. Postoperative bump in bilirubin and LFTs. Most likely related to a passed stone as visualized on IOC. Unlikely to be a postoperative complication such as an abscess or bile leak given clinical and lab improvement. Clinically
patient is improved and stable. Labs trending down. Plan for discharge with outpatient trend of CMP. Patient agrees.
-- Low fat diet
-- Pain control: Tylenol, Toradol, Oxycodone
-- HLIV
-- Medicine on board for DM control
-- OOB/ambulate
-- DVT: Lovenox
-- DC today, repeat labs as outpatient
Subjective Data
-
Date of Service: April 09, 2024
Mild pain with ambulation or movement, significantly improved from preop and different. No nausea or vomiting. No fevers or chills.
Objective Data
-
Intake and Output
04/08/24 04/09/24 04/10/24
06:59 06:59 06:59
Intake Total 3870 / 3870 680 / 680
Output Total 1500 / 1500 500 / 500
Balance 2370 / 2370 180 / 180
Intake:
Oral fluids 720 / 720 480 / 480
IV fluids (Total) 2950 / 2950 200 / 200
normosol 100 / 100
IV piggybacks 200 / 200
Output:
Urine, Voided 1500 / 1500 500 / 500
Other:
Number of approximated MODERATE 4
amounts of urine
Vital Signs
Temp Pulse Resp BP Pulse Ox
98 F 72 17 132/69 96
04/09/24 07:11 04/09/24 07:11 04/09/24 07:11 04/09/24 07:11 04/09/24 07:11
Lab Results
04/09/24 04:54
04/09/24 04:54
Calcium 9.0 mg/dl (8.4-10.2) 04/09/24 04:54
Total Bilirubin 1.6 mg/dl (0.2-1.3) H 04/09/24 04:54
AST 63 U/L (17-59) H 04/09/24 04:54
ALT 106 U/L (0-50) H 04/09/24 04:54
Alkaline Phosphatase 108 U/L (38-126) 04/09/24 04:54
Total Protein 6.2 g/dl (6.3-8.2) L 04/09/24 04:54
Albumin 3.7 g/dl (3.5-5.0) 04/09/24 04:54
Physical Exam
-
Gen: NAD
Abd: soft, minimal tenderness at incisions, ND, non-peritoneal, incisions c/d/i - no erythema, ecchymosis or drainage
[2024-04-09] MEDS: LIPITOR 40 MG PO (08:55)
[2024-04-09] MEDS: PROTONIX 40 MG PO (08:55)
[2024-04-09] MEDS: GLUCOPHAGE 1000 MG PO (08:55)
[2024-04-09] MEDS: ZETIA 10 MG PO (08:55)
[2024-04-09] MEDS: ROXICODONE 5 MG PO (08:56)
[2024-04-09] MEDS: TORADOL 10 MG IV (08:56)
[2024-04-09] MEDS: JARDIANCE 10 MG PO (08:56)
[2024-04-09 09:08] LABS: Glucose - Point of Care 155 mg/dl (70-99)
[2024-04-09 12:27] LABS: Glucose - Point of Care 146 mg/dl (70-99)
[2024-04-09 13:09] VITALS: BP 117/71
--- NOTE | 2024-04-09 14:38 | CM ---
Patient has been medically cleared for discharge to home with no additional skilled services. Patient has arranged for transport home.
== END 2024-04-09 13:36 | disposition home or self-care (01) | DRG 419 ==
LOC: PACU 11:41
PROVIDERS: Hospitalist; ATTENDING PHYSICIAN Surgery; CONSULT PHYSICIAN Internal Medicine; EMERGENCY PHYSICIAN Emergency Medicine; FAMILY PHYSICIAN Family Medicine
PROC: 0FT44ZZ Resection of Gallbladder, Percutaneous Endoscopic Approach (ICD-10-PCS; 2024-04-07)
PROC: BF502Z0 Other Imaging of Bile Ducts using Fluorescing Agent, Intraoperative (ICD-10-PCS; 2024-04-07)
DX: K80.00 Calculus of gallbladder with acute cholecystitis without obstruction (principal); E11.9 Type 2 diabetes mellitus without complications; J45.909 Unspecified asthma, uncomplicated; K81.1 Chronic cholecystitis; E78.5 Hyperlipidemia, unspecified; K21.9 Gastro-esophageal reflux disease without esophagitis; Z79.82 Long term (current) use of aspirin; Z79.84 Long term (current) use of oral hypoglycemic drugs; Z79.85 Long-term (current) use of injectable non-insulin antidiabetic drugs; Z79.899 Other long term (current) drug therapy; Z87.891 Personal history of nicotine dependence; Z83.3 Family history of diabetes mellitus
CPT/HCPCS: 47563; 88304; 74300; 76000; 80053; 82962; 83036; 83690; 85025; 85027; 85610; 96361; 96365; 96375; 99285; A4300; J1610

== ENCOUNTER → 2024-04-12 10:35 | Outpatient (REF) | payer BC, SELFPAY ==
[2024-04-12 12:48] LABS: ALT (SGPT) 74 U/L (0-50); AST (SGOT) 45 U/L (17-59); Albumin 4.4 g/dl (3.5-5.0); Alkaline Phosphatase 147 U/L (38-126); Blood Urea Nitrogen 12 mg/dl (9-20); Calcium 9.9 mg/dl (8.4-10.2); Carbon Dioxide 24 mmol/L (22-30); Chloride 104 mmol/L (98-107); Glucose 130 mg/dl (70-99); Potassium 4.6 mmol/L (3.5-5.1); Sodium 138 mmol/L (135-145); Total Protein 7.1 g/dl (6.3-8.2); eGFR > 60.00
== END ==
LOC: REG 10:35
PROVIDERS: ATTENDING PHYSICIAN Surgery
DX: Z90.49 Acquired absence of other specified parts of digestive tract (principal); R89.9 Unspecified abnormal finding in specimens from other organs, systems and tissues
CPT/HCPCS: 36415; 80053